=== PATIENT | female | born 1980 | race Caucasian/White ===

== ENCOUNTER 2022-12-06 15:28 | Outpatient (REF) | payer MEDICARE, MEDICAID, SELFPAY ==
--- NOTE | 2022-12-06 14:00 | PAPFT_PTH ---
PATIENT: Roma Matute LOC: [facility] U#:[id number] AGE/SX: 42/F ROOM: RE12/06/[address]: Carmen Duran : 1980 BED: DIS: 12/06/2022 SPEC #: [id number] RECD: 12/07/22 12:55 STATUS: NAKITA REQ #: [id number] MARYAM: 12/06/22 14:[address]: Carmen Duran DEPT: [facility] Cytology RECD BY: Basia Lo Tissues: 1 - CX/ENDOCX FOR PAP SMEARS Procedures: PAP THIN PREP/[facility] Screening HPV DNA PROBE Comments: [id number] (CHLAMYDIA/GC)
[2022-12-10 13:33] LABS: Chlamydia Result Negative (Negative); GC Result Negative (Negative)
== END 2022-12-06 15:29 | disposition home or self-care (01) ==
LOC: NCHCN 15:28
PROVIDERS: Visit Provider Family Medicine
DX: Z12.4 Encounter for screening for malignant neoplasm of cervix (principal)
CPT/HCPCS: 87491; 87591; 88142; 87624

== ENCOUNTER 2024-11-03 15:52 | Outpatient (REF) | payer MEDICARE, MEDICAID, SELFPAY ==
[2024-11-03 21:34] LABS: Abs Immature Grans 0.04 10^3/uL (0.0-0.06); Absolute Basophil Count 0.04 10^3/uL (0.0-0.2); Absolute Eosinophil Count 0.35 10^3/uL (0.0-0.7); Absolute Lymphocyte Count 1.34 10^3/uL (1.2-3.4); Absolute Monocyte Count 0.58 10^3/uL (0.1-0.8); Absolute Neutrophil Count 5.77 10^3/uL (1.2-6.7); Basophils % 0.5 %; Eosinophils % 4.3 %; HCT 35.5 % (36.0-46.0); HGB 11.6 g/dL (11.2-15.7); Immature Grans % 0.5 %; Lymphocytes % 16.5 %; MCH 32.1 pg (27.0-33.0); MCHC 32.7 % (32.0-36.0); MCV 98 fL (80-95); MPV 9.7 fL (8.0-11.0); Monocytes % 7.1 %; Neutrophils % 71.1 %; Platelet Count 326 10^3/uL (130-400); RBC 3.61 10^6/uL (3.93-5.22); RDW 12.6 % (11.7-14.6); RDW-SD 45.4 fL; WBC 8.12 10^3/uL (4.4-10.8)
[2024-11-03 21:41] LABS: ALT 19 U/L (14-59); AST 22 U/L (15-37); Albumin 3.7 g/dL (3.4-5.0); Alkaline Phosphatase 61 U/L (46-116); Anion Gap 6.1 mmol/L (3-11); BUN 12 mg/dL (7-18); Bilirubin, Total 0.18 mg/dL (0.2-1.0); CO2 28.9 mmol/L (21.0-32.0); CREATININE 0.7 mg/dL (0.55-1.02); Calcium 8.8 mg/dL (8.5-10.1); Chloride 109 mmol/L (98-107); Estimated GFR 109.98 (mL/min/1.73m2); Glucose 103 mg/dL (74-106); Sodium 144 mmol/L (136-145); Total Protein 7.1 g/dL (6.4-8.2)
[2024-11-05 10:53] LABS: Hepatitis C Ab w Rflx HCV PCR Negative (Negative)
[2024-11-05 11:20] LABS: HIV-1/2 Ag & Ab Screen Negative (Negative)
== END 2024-11-03 15:53 | disposition home or self-care (01) ==
LOC: NCHCN 15:52
PROVIDERS: PCP Family Medicine; Visit Provider Family Medicine
DX: F11.20 Opioid dependence, uncomplicated (principal)
CPT/HCPCS: 80053; 86803; 87389; 85025